=== PATIENT | male | born 1995 ===

== ENCOUNTER 2021-02-28 08:04 | Day surgery (SDC) | payer OTHER ==
[~2021-02-28] VITALS: Ht 175.3 cm; Wt 75.1 kg
[2021-02-28] VITALS (7 sets, daily range): BP systolic 101–134; BP diastolic 50–84
[~2021-02-28 08:04] MED LIST: NO HOME MEDS; cefazolin/dext.iso 2gm/100ml IV ONE; famotidine 20mg tablet PO ONE; ringers solution, lacted 1,000 ML IV SCH; vancomycin 1,500 MG in NS 300ml IV soln IV ONE
[2021-02-28] MEDS ORDERED: morphine 2 MG/ML inj. syringe IV PRN (09:40)
[2021-02-28] MEDS ORDERED: meperidine/PF 25mg/ml syringe IV PRN ×3 (09:40)
[2021-02-28] MEDS ORDERED: proCHLORperazine 10 MG/2 ml inj IV PRN (09:40)
[2021-02-28] MEDS ORDERED: ondansetron/PF 4mg/2ml inj IV PRN (09:40)
[2021-02-28] MEDS ORDERED: ringers solution, lacted 1,000 ML IV SCH (09:40)
[2021-02-28] MEDS ORDERED: morphine 4 MG/ML inj SYRINge IV PRN (09:40)
[2021-02-28] MEDS ORDERED: ondansetron/PF 4mg/2ml inj ONE (12:18)
[2021-02-28] MEDS ORDERED: LIDOcaine 1%/PF 5ML 10 MG/ML VIAL ONE (12:18)
[2021-02-28] MEDS ORDERED: dexamethasone sod phosphate 10mg/ml inj ONE (12:18)
[2021-02-28] MEDS ORDERED: sevoflurane 250ml liquid IH ONE (12:18)
[2021-02-28] MEDS ORDERED: ROPIVAcaine 0.5% (5mg/ml) 30ml vial ONE (12:26)
[2021-02-28] MEDS ORDERED: fentaNYL/PF 50MCG/1 ML 2ML syringe ONE (12:26)
[2021-02-28] MEDS ORDERED: MIDAZolam 1 MG/ML 5ML VIAL ONE (12:26)
[2021-02-28] MEDS ORDERED: propofol inj 20 ML IV ONE (12:58)
[2021-02-28] MEDS ORDERED: Thrombin (Bovine) 5,000 unit vial TP ONE (14:19)
[2021-02-28] MEDS ORDERED: gelatin sponge, absorbable (Gelfoam 100) sponge TP ONE (14:19)
[2021-02-28] MEDS ORDERED: BUPIVAcaine 0.5% W/EPI /PF 30ml vial ONE (14:25)
--- NOTE | 2021-02-28 15:17 | NUR ---
Received from OR via [facility], accompanied by Anesthesiologist DR MARIN and report given by Anesthesiologist. PT VERY DROWSY, ORAL AIRWAY PLACED. 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 Addendum: 02/28/21 at 1538 by Florence Mazariegos RN Amended: Links added.
--- NOTE | 2021-02-28 16:26 | NUR ---
PT ABLE TO SAFELY AMBULATE, TOLERATING ORAL FLUIDS AND CRACKERS, DENIES PAIN. D/C INSTRUCTIONS GIVEN TO CORRECTIONAL OFFICERS. PT D/CD VIA W/C TO CORRECTIONAL VAN W/OFFICERS. Addendum: 02/28/21 at 1643 by Florence Mazariegos RN Amended: Links added.
== END 2021-02-28 16:26 ==
LOC: PAS 08:04 → EEVIPCON 10:00 → PAS 16:26
PROVIDERS: ATTEND Orthopaedic Surgery
DX: S52.392 Other fracture of shaft of radius, left arm (principal); G89.18 Other acute postprocedural pain; Z79.899 Other long term (current) drug therapy; X58.XXXD Exposure to other specified factors, subsequent encounter
CPT/HCPCS: 25405; 64417; 76942; 82948; C1713; J1100; J2250; J2405; J2704; J3010; J3370; J7040; A4215; A4565; A4618; A6258; A6449; A7000; J2795; J7120